=== PATIENT | female | born 1995 | race Caucasian/White ===

== ENCOUNTER 2017-02-19 15:18 | Emergency (ER) | payer OTHER ==
[~2017-02-19 15:18] MED LIST: COLACE 100MG C100 MG PO; FERROUS SULFAT325 M2 PO
== END 2017-02-19 16:00 | disposition home or self-care (01) ==
LOC: ER1 15:18
DX: K08.89 Other specified disorders of teeth and supporting structures (principal)
CPT/HCPCS: 96372; 99282; J1885

== ENCOUNTER 2017-08-16 14:33 | Emergency (ER) | payer OTHER | END 2017-08-16 15:18 | disposition home or self-care (01) | LOC: ER1 14:33 | DX: O99.89 Other specified diseases and conditions complicating pregnancy, childbirth and the puerperium (principal); H66.92 Otitis media, unspecified, left ear; O99.332 Smoking (tobacco) complicating pregnancy, second trimester; F17.210 Nicotine dependence, cigarettes, uncomplicated; Z3A.24 24 weeks gestation of pregnancy | CPT/HCPCS: 99282 ==

== ENCOUNTER 2021-03-19 09:41 | Emergency (ER) | payer OTHER ==
[~2021-03-19 09:41] MED LIST changes: +BENTYL 20MG TAB20 MG PO; +NORCO 5-325 TA1 EACH PO; +PROTONIX40 MG PO; +ZANTAC150 MG PO; +ZOFRAN ODT 4 MG4 MG SL; +ZOFRAN4 MG PO
[2021-03-19 10:54] LABS: HEMOGLOBIN 12.1 gm/dl (12.3-15.3); RED BLOOD COUNT 4.07 M/UL (4.00-5.10); WHITE BLOOD COUNT 6.2 K/UL (4.5-11.0)
[2021-03-19 11:10] LABS: BUN/CREATININE RATIO 17 (0-10)
[2021-03-19] MEDS ORDERED: OMNICEF 300 MG300 MG PO (13:18)
[2021-03-19] MEDS ORDERED: IBUPROFEN800 MG PO (13:18)
[2021-03-20 01:48] LABS: ACINETOBACTER BAUMANNII Not Detected (Negative); CANDIDA ALBICANS Not Detected (Negative); CANDIDA KRUSEI Not Detected (Negative); CANDIDA TROPICALIS Not Detected (Negative); ENTEROCOCCUS Not Detected (Negative); HAEMOPHILUS INFLUENZAE Not Detected (Negative); KLEBSIELLA OXYTOCA Not Detected (Negative); KLEBSIELLA PNEUMONIAE Not Detected (Negative); KPC-CARBAPENEM-RESISTANCE GENE Not Detected (Negative); PROTEUS Not Detected (Negative); PSEUDOMONAS AERUGINOSA Not Detected (Negative); SERRATIA MARCESANS Not Detected (Negative); STAPHYLOCOCCUS Not Detected (Negative); STAPHYLOCOCCUS AUREUS Not Detected (Negative); STREP AGALACTIAE (GROUP B) Not Detected (Negative); STREP PYOGENES (GROUP A) Not Detected (Negative); STREPTOCOCCUS Not Detected (Negative); mecA (METHICILLIN RESIST GENE Not Detected (Negative); vanA/B (VANCOMYCIN RESIST GENE Not Detected (Negative)
[2021-03-20 01:51] LABS: ESCHERICHIA COLI DETECTED (Negative)
== END 2021-03-19 13:40 | disposition home or self-care (01) ==
LOC: ER1 09:41
PROVIDERS: Emergency Medicine
DX: N39.0 Urinary tract infection, site not specified (principal); F17.210 Nicotine dependence, cigarettes, uncomplicated
CPT/HCPCS: 71045; 80053; 81001; 83605; 83690; 84703; 85025; 87040; 87077; 87150; 87186; 96374; 96375; 99284; J0696; J1885; J7030; Q9967